=== PATIENT | male | born 1950 | race Caucasian/White ===

== ENCOUNTER 2025-03-19 09:40 | Day surgery (SDC) | payer MEDICARE ==
[2025-03-16 12:45] VITALS: BMI 29.7
[2025-03-19] MEDS ORDERED: CEFAZOLIN 2 GM VIAL ONE (10:13)
[2025-03-19] MEDS ORDERED: Bupivacaine HCl 0.5%/Epinephrine 1:200,000/PF 30 ml Vial ONE (10:13)
[2025-03-19] MEDS ORDERED: Rocuronium Bromide 10 MG/ML (10ML VIAL) ONE (11:42)
[2025-03-19] MEDS ORDERED: SUGAMMADEX SODIUM 200 MG/2 ML VIAL ONE (11:42)
[2025-03-19] MEDS ORDERED: PROPOFOL 20 ML ONE ×2 (11:42→12:28)
[2025-03-19] MEDS ORDERED: Lidocaine 1% PF 5 ML VIAL ONE (11:42)
[2025-03-19] MEDS ORDERED: Ondansetron PF 4 MG/2 ML Vial ONE (11:42)
[2025-03-19] MEDS ORDERED: HYDROmorphone 0.5 MG/0.5 ML SYRINGE ONE ×2 (13:54→14:08)
[2025-03-19] MEDS ORDERED: HYDROcodone/Acetaminophen 5/325 mg Tablet ONE (15:00)
== END 2025-03-19 16:05 | disposition home or self-care (01) ==
LOC: CSHSDC 09:40
PROVIDERS: ATTEND Surgery
PROC: 0FT44ZZ Resection of Gallbladder, Percutaneous Endoscopic Approach (ICD-10-PCS; principal; 2025-03-19)
DX: K80.10 Calculus of gallbladder with chronic cholecystitis without obstruction (principal); I11.9 Hypertensive heart disease without heart failure; I25.10 Atherosclerotic heart disease of native coronary artery without angina pectoris; Z87.891 Personal history of nicotine dependence; Z88.5 Allergy status to narcotic agent; Z79.02 Long term (current) use of antithrombotics/antiplatelets
CPT/HCPCS: 47562; C1889; J1100; J1171; J2250; J2405; J2704; J3010; S2900; 88304